=== PATIENT | male | born 1955 | race Caucasian/White ===

== ENCOUNTER → 2017-05-01 | Outpatient (CLI) | payer OTHER ==
[~2017-05-01] MED LIST: HYDR-3240 PO; IBUP400T PO; OMEP40CA6 PO
== END | disposition home or self-care (01) ==
LOC: CVU 07:35
PROVIDERS: ATTEND Family Medicine
DX: R00.2 Palpitations (principal); E78.5 Hyperlipidemia, unspecified
CPT/HCPCS: 93225; 93226; 93306

== ENCOUNTER 2018-10-04 11:08 | Emergency (ER) | payer OTHER ==
[~2018-10-04] VITALS: Ht 182.9 cm; Wt 123.0 kg
[~2018-10-04 11:08] MED LIST changes: +IBUP-1221 PO; -IBUP400T PO
--- NOTE | 2018-10-04 11:28 | NUR ---
Late note entry for 1109: First contact with pt. Pt brought in by EMS from [facility] [place] after pt reports a near syncopal event and feeling heart palpatations at home "this morning while making coffee." Pt reports, "I have been treated for heart palpatations before." NADN. Pt connected to all monitors and all safety measures in place. Pt is AOX4, is in normal sinus rhythm on cardiac technologist, and has unlabored respirations equal bilaterally. Pt denies chest pain, shortness of breath, dizziness, lightheadedness, nausea, vomitting, diarrhea, or diaphoresis at this time. No needs expressed at this time. Pt recieved from EMS 2 mg of Versed and 324 ASA. Pt has a 20g PIV placed Rt AC prior to arrival. All safety measures are in place. No needs expressed at this time. Call light with in reach.
--- NOTE | 2018-10-04 11:46 | NUR ---
Gave report to Jayleen Rn's. All questions answered.
[2018-10-04 11:53] LABS: BASOPHILS # (AUTO) 0.03 x10^3/uL (0-0.1); BASOPHILS % (AUTO) 1 % (0-1); EOSINOPHILS # (AUTO) 0.15 x10^3/uL (0-0.4); EOSINOPHILS % (AUTO) 2 % (1-7); LYMPHOCYTES # (AUTO) 1.48 x10^3/uL (1-3.4); LYMPHOCYTES % (AUTO) 22 % (22-44); MD NO; MEAN CORPUSCULAR HEMOGLOBIN 30.5 pg (27.5-34.5); MEAN CORPUSCULAR HGB CONC 34.6 g/dL (33.2-36.2); MEAN PLATELET VOLUME 7.1 fL (7.4-10.4); MONOCYTES # (AUTO) 0.39 x10^3/uL (0.2-0.8); MONOCYTES % (AUTO) 6 % (2-9); NEUTROPHILS # (AUTO) 4.53 x10^3/uL (1.8-6.8); NEUTROPHILS % (AUTO) 69 % (42-75); PLATELET COUNT 262 x10^3/uL (130-400); RED BLOOD COUNT 4.99 x10^6/uL (4.38-5.82)
--- NOTE | 2018-10-04 11:57 | NUR ---
preceptor note: report taken from MARKO Altman. pt a&o, resps even and unlabored. pt denies pain. pt denies palpitations or other symptoms at this time. nsr on cribbing setter with no ectopy. EKG completed by EDT. awaiting lab results and dispo at this time.
[2018-10-04 12:01] LABS: ALBUMIN 3.6 g/dL (3.4-5.0); ANION GAP 6 mmol/L (5-15); CALCIUM 8.9 mg/dL (8.5-10.1); CHLORIDE 109 mmol/L (98-107); CREATININE 1.29 mg/dL (0.7-1.3)
[2018-10-04] MEDS ORDERED: SIMVASTATIN (12:02)
[2018-10-04 12:05] LABS: FREE T4 (FREE THYROXINE) 0.94 ng/dL (0.76-1.46); TROPONIN I < 0.015 ng/mL (0.000-0.045)
--- NOTE | 2018-10-04 12:30 | NUR ---
BROOK LINDA AT BEDSIDE AND EXPLAINING RESULTS. PT'S AT BEDSIDE WELL. AWAITING DC AT THIS TIME.
[2018-10-04 13:20] VITALS: BP 130/82
--- NOTE | 2018-10-04 13:24 | NUR ---
pt given dc instructions and script. pt educated regarding ativan rx. pt a&o, resps even and unlabored. nsr on cardiac montior with no ectopy. pt denies pain. pt amb to dc desk with steady gait accompanied by .
== END 2018-10-04 13:21 | disposition home or self-care (01) ==
LOC: ED 12:45
DX: R55 Syncope and collapse (principal); F41.1 Generalized anxiety disorder; E78.5 Hyperlipidemia, unspecified
CPT/HCPCS: 36415; 71045; 80048; 82040; 84439; 84443; 84484; 85025; 93005; 99284

== ENCOUNTER 2018-12-11 07:36 | Day surgery (SDC) | payer OTHER ==
[2018-12-10 14:20] LABS: BASOPHILS # (AUTO) 0.02 x10^3/uL (0-0.1); BASOPHILS % (AUTO) 0 % (0-1); EOSINOPHILS # (AUTO) 0.31 x10^3/uL (0-0.4); EOSINOPHILS % (AUTO) 5 % (1-7); LYMPHOCYTES # (AUTO) 1.82 x10^3/uL (1-3.4); LYMPHOCYTES % (AUTO) 30 % (22-44); MD NO; MEAN CORPUSCULAR HEMOGLOBIN 30.1 pg (27.5-34.5); MEAN CORPUSCULAR HGB CONC 34.3 g/dL (33.2-36.2); MEAN CORPUSCULAR VOLUME 87.9 fL (81-97); MEAN PLATELET VOLUME 7.4 fL (7.4-10.4); MONOCYTES % (AUTO) 8 % (2-9); NEUTROPHILS # (AUTO) 3.43 x10^3/uL (1.8-6.8); NEUTROPHILS % (AUTO) 56 % (42-75); PLATELET COUNT 247 x10^3/uL (130-400); RED BLOOD COUNT 5.12 x10^6/uL (4.38-5.82); RED CELL DISTRIBUTION WIDTH 13.8 % (9.4-14.8)
[2018-12-10 14:27] LABS: ANION GAP 4 mmol/L (5-15); CALCIUM 9.2 mg/dL (8.5-10.1); CHLORIDE 107 mmol/L (98-107); CREATININE 1.19 mg/dL (0.7-1.3)
[~2018-12-11] VITALS: Ht 182.9 cm; Wt 111.8 kg
[~2018-12-11 07:36] MED LIST changes: +ASPI-496 PO; +ROSU10TA2 PO; +SIMVASTATIN; +prilosec PO; +statin PO
[2018-12-11] MEDS ORDERED: DIAZ10TA PO (08:14)
[2018-12-11] MEDS ORDERED: HYDR-3237 PO (08:14)
[2018-12-11] MEDS ORDERED: BIVALIRUDIN 250 MG ONE (09:15)
[2018-12-11] MEDS ORDERED: TICAGRELOR 90 MG TABLET ONE (09:15)
[2018-12-11] MEDS ORDERED: VERAPAMIL 2.5 MG/ML, 2ML ONE (09:15)
[2018-12-11] MEDS ORDERED: FENTANYL PF 100 MCG/2ML ONE (09:15)
[2018-12-11] MEDS ORDERED: MIDAZOLAM 1 MG/ML, 5ML ONE (09:15)
[2018-12-11] MEDS ORDERED: HEPARIN 1,000 UNITS/ML, 10ML ONE (09:15)
[2018-12-11] MEDS ORDERED: LIDOCAINE-MPF 1%, 5ML ONE (09:15)
[2018-12-11] MEDS ORDERED: SODIUM CHLORIDE 0.9% 1,000 ML IV SCH (10:17)
[2018-12-11] MEDS ORDERED: IBUPROFEN 200 MG TABLET PO PRN (12:00)
== END 2018-12-11 13:01 | disposition home or self-care (01) ==
LOC: CACL 07:36
PROVIDERS: ATTEND Internal Medicine Cardiovascular Disease
DX: I25.10 Atherosclerotic heart disease of native coronary artery without angina pectoris (principal); E78.5 Hyperlipidemia, unspecified; K21.9 Gastro-esophageal reflux disease without esophagitis; F41.9 Anxiety disorder, unspecified; J45.909 Unspecified asthma, uncomplicated; Z87.891 Personal history of nicotine dependence
CPT/HCPCS: 36415; 80048; 85025; 93005; 93458; 99156; C1769; C1894; J1644; J2250; J3010; Q9967; J0583

== ENCOUNTER → 2019-02-23 | Outpatient (CLI) | payer OTHER ==
[~2019-02-23] MED LIST changes: +DIAZ10TA PO; +HYDR-3237 PO
== END | disposition home or self-care (01) ==
LOC: RAD 07:20
PROVIDERS: ATTEND Family Medicine
DX: K22.8 Other specified diseases of esophagus (principal); K21.9 Gastro-esophageal reflux disease without esophagitis
CPT/HCPCS: 74241

== ENCOUNTER 2020-11-13 09:46 | Emergency (ER) | payer MEDICARE ==
[~2020-11-13] VITALS: Ht 182.9 cm; Wt 100.7 kg
[~2020-11-13 09:46] MED LIST changes: +HYDR-1067 PO; -HYDR-3240 PO; +OMEP40CA42 PO; -OMEP40CA6 PO; +POLY17PO5 PO
--- NOTE | 2020-11-13 10:26 | NUR ---
PT AMBULATORY TO ROOM 7 W/ C/O CHRONIC ABD PAIN. PT STATES HE HAS NOT HAD BM X 2 WEEKS AND WENT TO SEE HIS GI MD. PT STATES HE HAS BEEN IN SEVERE PAIN SINCE LAST NOC. PT ABD NOTED TO BE ROUND SEMI FIRM. PT STATES ANOREXIA AND HE HAS NOT HAD MUCH TO EAT OVER THE LAST FEW DAYS. PT RESTING ON RylaCASI. ANAYA. JAYES.
[2020-11-13] MEDS ORDERED: DICYCLOMINE 10 MG/ML, 2ML IM ONE (10:30)
[2020-11-13] MEDS ORDERED: DICYCLOMINE 10 MG/ML, 2ML ONE (10:34)
[2020-11-13 10:42] LABS: BASOPHILS % (AUTO) 1 % (0-1); EOSINOPHILS % (AUTO) 2 % (1-7); LYMPHOCYTES % (AUTO) 38 % (22-44); MD NO; MEAN CORPUSCULAR HGB CONC 35.1 g/dL (33.2-36.2); MEAN PLATELET VOLUME 7.4 fL (7.4-10.4); MONOCYTES % (AUTO) 6 % (2-9); NEUTROPHILS % (AUTO) 53 % (42-75); PLATELET COUNT 234 x10^3/uL (130-400); RED BLOOD COUNT 4.71 x10^6/uL (4.38-5.82); RED CELL DISTRIBUTION WIDTH 14.1 % (9.4-14.8)
[2020-11-13 10:52] LABS: ALANINE AMINOTRANSFERASE 36 U/L (12-78); ANION GAP 5 mmol/L (5-15); CALCIUM 9.3 mg/dL (8.5-10.1); CHLORIDE 109 mmol/L (98-107); CREATININE 0.97 mg/dL (0.7-1.3)
[2020-11-13 10:53] LABS: ALKALINE PHOSPHATASE 62 U/L (45-117); BILIRUBIN,TOTAL 1.4 mg/dL (0.2-1.0); TOTAL PROTEIN 6.9 g/dL (6.4-8.2)
--- NOTE | 2020-11-13 10:55 | NUR ---
PER ERP DR. GARRISON NO NEED FOR UA SAMPLE.
[2020-11-13 11:14] LABS: MICROSCOPIC NOT IND
[2020-11-13] MEDS ORDERED: OMNIPAQUE 350 MG/ML, 100ML BOTTLE ONE (11:20)
[2020-11-13 11:21] VITALS: BP 115/65
--- NOTE | 2020-11-13 11:21 | NUR ---
PT RESTING ON GURNEY. NADN. LEWIS.
--- NOTE | 2020-11-13 11:29 | NUR ---
PT CHART REVIEWED AND PLACED FOR RECHECK.
--- NOTE | 2020-11-13 11:41 | NUR ---
ERP DR. GARRISON AT BEDSIDE FOR RE-EVAL.
[2020-11-13] MEDS ORDERED: MAALOX/HYOSCYAMINE/LIDOCAINE 45 ML BTL ONE (11:49)
[2020-11-13] MEDS ORDERED: MAALOX/HYOSCYAMINE/LIDOCAINE 45 ML BTL PO ONE (12:00)
== END 2020-11-13 12:00 | disposition home or self-care (01) ==
LOC: ED 11:52
DX: R10.32 Left lower quadrant pain (principal); M48.54XA Collapsed vertebra, not elsewhere classified, thoracic region, initial encounter for fracture; G89.29 Other chronic pain; R94.31 Abnormal electrocardiogram [ECG] [EKG]
CPT/HCPCS: 36415; 74177; 80053; 81003; 83605; 83690; 85025; 93005; 96372; 99285; J0500; Q9967